=== PATIENT | male | born 1970 | race Caucasian/White ===

== ENCOUNTER 2017-12-04 11:54 | Inpatient (IN) | payer OTHER ==
[2017-12-04] MEDS ORDERED: Diltiazem 25 MG/5 ML SDV IVPUSH ONE (12:28)
[2017-12-04] MEDS ORDERED: Diltiazem 125 MG in Sodium Chloride 0.9% 100 ML IV SCH (12:30)
--- NOTE | 2017-12-04 12:30 | EDM.PDOC ---
ED HPI GENERAL MEDICAL PROBLEM - General Chief Complaint: Cardiovascular Problem Stated Complaint: IRREGULAR HEARTBEAT Time Seen by Provider: 12/04/17 12:27 Source of Information: Reports: Patient History Limitations: Reports: No Limitations - History of Present Illness INITIAL COMMENTS - FREE TEXT/NARRATIVE: 37-year-old male attends the ED after being seen at occupational health clinic for a physical examination in preparation for a new job here. He just got in from [place] yesterday. He was identified to be in atrial fibrillation of which he did not have any idea that he was in. He is not aware of any fluttering in his chest he has no pain .No dizziness and no chest pain. He believes he started to feel little weak within the last 48 hours but thought it was just the long journey to [place]. Onset: Unknown/Unsure (Probable yesterday.) Onset Date: 12/03/17 Duration: Hour(s): Quality: Reports: Other (Relatively asymptomatic.) Severity: Moderate Improves with: Reports: None (Heart rate on the monitors anywhere from 95-1 70/ m.) Worsens with: Reports: None Context: Reports: Other (Found to be in atrial fibrillation when he went in for his occupational health. Physical examination with Dr. Shetty today.). Denies: Activity, Exercise, Lifting, Sick Contact, Trauma Associated Symptoms: Reports: Malaise, Weakness. Denies: Confusion, Chest Pain , Cough, cough w sputum, Diaphoresis, Fever/Chills, Headaches, Loss of Appetite , Nausea/Vomiting, Rash, Seizure, Shortness of Breath, Syncope Treatments [employer]: Reports: Other (see below) (Mild generalized fatigue and weakness which he just plan on the long journey to [place].) - Related Data Allergies Allergy/AdvReac Type Severity Reaction Status Date / Time Penicillins Allergy Hives Verified 12/04/17 12:12 Home Meds: Home Meds Aspirin [Ecotrin] 81 mg PO DAILY 12/04/17 [History] Past Medical History - Past Health History Medical/Surgical History: Denies Medical/Surgical History Social & Family History - Tobacco Use Smoking Status *Q: Never Smoker Second Hand Smoke Exposure: No - Caffeine Use Caffeine Use: Reports: Coffee - Recreational Drug Use Recreational Drug Use: No - Living Situation & Occupation Living situation: Reports: Single Occupation: Unemployed ED ROS GENERAL - Review of Systems Review Of Systems: See Below Constitutional: Reports: Malaise, Fatigue. Denies: Fever, Chills, Night Sweats , Diaphoresis, Decreased Appetite, Weight Loss, Weight Gain HEENT: Reports: No Symptoms Respiratory: Reports: No Symptoms Cardiovascular: Reports: Blood Pressure Problem. Denies: Chest Pain, Claudication, Dyspnea on Exertion, Edema, Lightheadedness, Orthopnea (Not known to be hypertensive but is today on arrival in the ED.), Palpitations, PND, Syncope, Other Endocrine: Reports: No Symptoms GI/Abdominal: Reports: No Symptoms : Reports: No Symptoms Musculoskeletal: Reports: No Symptoms Skin: Reports: No Symptoms Neurological: Reports: No Symptoms Psychiatric: Reports: No Symptoms Hematologic/Lymphatic: Reports: No Symptoms Immunologic: Reports: No Symptoms ED EXAM, GENERAL - Physical Exam Exam: See Below Exam Limited By: No Limitations General Appearance: Alert, WD/WN, Anxious, Mild Distress Eye Exam: Bilateral Eye: Normal Inspection Throat/Mouth: Normal Inspection, Normal Lips, Normal Oropharynx Head: Atraumatic, Normocephalic Neck: Normal Inspection, Supple, Non-Tender, Full Range of Motion. No: Carotid Bruit, Lymphadenopathy (L), Lymphadenopathy (R), Thyromegaly Respiratory/Chest: No Respiratory Distress, Lungs Clear, Normal Breath Sounds, Chest Non-Tender Cardiovascular: No Edema, No Gallop, No Murmur, No Rub, Tachycardia (Heart rate is up 270/m on monitor at times. It is revealing atrial fibrillation.), Irregularly Irregular. No: Regular Rate, Rhythm Peripheral Pulses: 3+: Posterior Tibial (L), Posterior Tibial (R), Dorsalis Pedis (L), Dorsalis Pedis (R) GI/Abdominal: Normal Bowel Sounds, Soft, Non-Tender, No Organomegaly, No Abnormal Bruit, No Mass, Pelvis Stable (Male) Exam: Normal Inspection Back Exam: Normal Inspection, Full Range of Motion. No: CVA Tenderness (L), CVA Tenderness (R) Extremities: Normal Inspection, Normal Range of Motion, Non-Tender, No Pedal Edema Neurological: Alert, Oriented, CN II-XII Intact, Normal Cognition, Normal Gait Psychiatric: Normal Affect, Normal Mood Skin Exam: Warm, Dry, Intact, Normal Color, No Rash EKG INTERPRETATION EKG Date: 12/04/17 Time: 12:05 Rhythm: A-Fib (With rate of 95-1 70/m.) Rate (Beats/Min): 147 [place]: Normal P-Wave: Absent QRS: Other (Borderline criteria for left ventricular hypertrophy.) ST-T: Other (Diffuse early repolarization pattern.) QT: Normal EKG Interpretation Comments: Abnormal ECG Course - Vital Signs Last Recorded V/S: Last Vital Signs Temp 36.4 C 12/04/17 12:13 Pulse 147 H 12/04/17 12:13 Resp 16 12/04/17 18:54 BP 150/79 H 12/04/17 18:56 Pulse Ox 97 12/04/17 18:54 - Orders/Labs/Meds Orders: Active Orders 24 hr Category Date Time Status EKG Documentation Completion [RC] STAT Care 12/04/17 12:27 Active INR,PT,PROTHROMBIN TIME [COAG] Routine Lab 12/04/17 20:32 Ordered Diltiazem 125 mg Med 12/04/17 12:30 Active Sodium Chloride 0.9% [Normal Saline] 100 ml IV ASDIRECTED Warfarin [Coumadin] Med 12/04/17 20:28 Once 7.5 mg PO ONETIME ONE Medication Orders Diltiazem HCl 125 mg/ Sodium (Chloride) 125 mls @ 10 mls/hr IV ASDIRECTED CECIL PRN Reason: 10 MG/HR Last Admin: 12/04/17 12:49 Dose: 10 mg/hr, 10 mls/hr Labs: Laboratory Tests 12/04/17 12/04/17 12/04/17 Range/Units 12:10 12:10 12:10 WBC 6.53 (4.23-9.07) K/mm3 RBC 3.97 L (4.63-6.08) M/mm3 Hgb 10.7 L (13.7-17.5) gm/L Hct 32.6 L (40.1-51.0) % MCV 82.1 (79.0-92.2) fl MCH 27.0 (25.7-32.2) pg MCHC 32.8 (32.2-35.5) g/dl RDW Std Deviation 48.5 H (35.1-43.9) fL Plt Count 209 (163-337) K/mm3 MPV 11.9 (9.4-12.3) fl Neutrophils % (Manual) 45 (40-60) % Band Neutrophils % 0 (0-10) % Lymphocytes % (Manual) 53 H (20-40) % Atypical Lymphs % 0 % Monocytes % (Manual) 2 (2-10) % Eosinophils % (Manual) 0 L (0.8-7.0) % Basophils % (Manual) 0 L (0.2-1.2) Platelet Estimate Adequate RBC Morph Comment Normal PT 10.5 (8.0-13.0) SECONDS INR 0.97 D-Dimer, Quantitative (0.19-0.59) mg/L Sodium 139 (136-145) mEq/L Potassium 4.4 (3.5-5.1) mEq/L Chloride 106 (98-107) mEq/L Carbon Dioxide 23 (21-32) mEq/L Anion Gap 14.4 (5-15) BUN 17 (7-18) mg/dL Creatinine 0.6 L (0.7-1.3) mg/dL Est Cr Clr Drug Dosing 161.12 mL/min Estimated GFR (MDRD) > 60 (>60) mL/min BUN/Creatinine Ratio 28.3 H (14-18) Glucose 88 (74-106) mg/dL Calcium 8.7 (8.5-10.1) mg/dL Magnesium 1.6 L (1.8-2.4) mg/dl Total Bilirubin 0.8 (0.2-1.0) mg/dL GGT (15-85) U/L AST 32 (15-37) U/L ALT 44 (16-63) U/L Alkaline Phosphatase 426 H (46-116) U/L CK-MB (CK-2) 1.0 (0-3.6) ng/ml Troponin I 0.023 (0.00-0.056) ng/mL NT-Pro-B Natriuret Pep (0-125) pg/mL Total Protein 7.1 (6.4-8.2) g/dl Albumin 3.4 (3.4-5.0) g/dl Globulin 3.7 gm/dL Albumin/Globulin Ratio 0.9 L (1-2) 12/04/17 12/04/17 12/04/17 Range/Units 12:10 12:10 12:10 WBC (4.23-9.07) K/mm3 RBC (4.63-6.08) M/mm3 Hgb (13.7-17.5) gm/L Hct (40.1-51.0) % MCV (79.0-92.2) fl MCH (25.7-32.2) pg MCHC (32.2-35.5) g/dl RDW Std Deviation (35.1-43.9) fL Plt Count (163-337) K/mm3 MPV (9.4-12.3) fl Neutrophils % (Manual) (40-60) % Band Neutrophils % (0-10) % Lymphocytes % (Manual) (20-40) % Atypical Lymphs % % Monocytes % (Manual) (2-10) % Eosinophils % (Manual) (0.8-7.0) % Basophils % (Manual) (0.2-1.2) Platelet Estimate RBC Morph Comment PT (8.0-13.0) SECONDS INR D-Dimer, Quantitative 0.58 (0.19-0.59) mg/L Sodium (136-145) mEq/L Potassium (3.5-5.1) mEq/L Chloride (98-107) mEq/L Carbon Dioxide (21-32) mEq/L Anion Gap (5-15) BUN (7-18) mg/dL Creatinine (0.7-1.3) mg/dL Est Cr Clr Drug Dosing mL/min Estimated GFR (MDRD) (>60) mL/min BUN/Creatinine Ratio (14-18) Glucose (74-106) mg/dL Calcium (8.5-10.1) mg/dL Magnesium (1.8-2.4) mg/dl Total Bilirubin (0.2-1.0) mg/dL GGT 308 H (15-85) U/L AST (15-37) U/L ALT (16-63) U/L Alkaline Phosphatase (46-116) U/L CK-MB (CK-2) (0-3.6) ng/ml Troponin I (0.00-0.056) ng/mL NT-Pro-B Natriuret Pep 1856 H (0-125) pg/mL Total Protein (6.4-8.2) g/dl Albumin (3.4-5.0) g/dl Globulin gm/dL Albumin/Globulin Ratio (1-2) Meds: Medications Generic Name Dose Route Start Last Admin Trade Name Julian PRN Reason Stop Dose Admin Diltiazem HCl 125 mg/ Sodium 125 mls @ 10 mls/hr 12/04/17 12:30 12/04/17 12: 49 Chloride IV 10 mg/hr ASDIRECTED CECIL 10 mls/hr 10 MG/HR Administration Discontinued Medications Generic Name Dose Route Start Last Admin Trade Name Julian PRN Reason Stop Dose Admin Amiodarone HCl Confirm 12/04/17 18:27 12/04/17 18:56 Cordarone Administered 12/04/17 18:28 Not Given Dose 150 mg .ROUTE .STK-MED ONE Citric Acid/Sodium Citrate Confirm 12/04/17 18:18 Bicitra Solution Administered 12/04/17 18:19 Dose 30 ml .ROUTE .STK-MED ONE Diltiazem HCl 10 mg 12/04/17 12:28 12/04/17 12:40 Diltiazem IVPUSH 12/04/17 12:29 10 mg ONETIME ONE Administration Diltiazem HCl Confirm 12/04/17 12:44 12/04/17 12:41 Diltiazem Administered 12/04/17 12:45 Not Given Dose 25 mg .ROUTE .STK-MED ONE Diltiazem HCl 300 mg 12/04/17 19:34 12/04/17 19:57 Cardizem Cd PO 12/04/17 19:35 300 mg ONETIME ONE Administration Enoxaparin Sodium 75 mg 12/04/17 20:17 12/04/17 20:27 Lovenox SUBCUT 12/04/17 20:18 75 mg ONETIME ONE Administration Fentanyl Confirm 12/04/17 18:20 Sublimaze Administered 12/04/17 18:21 Dose 100 mcg .ROUTE .STK-MED ONE Fentanyl Confirm 12/04/17 18:37 Sublimaze Administered 12/04/17 18:38 Dose 100 mcg .ROUTE .STK-MED ONE Furosemide 40 mg 12/04/17 14:41 12/04/17 14:50 Lasix IVPUSH 12/04/17 14:42 40 mg NOW ONE Administration Magnesium Sulfate 2 gm/ Premix 50 mls @ 25 mls/hr 12/04/17 14:40 12/04/17 14: 51 IV 02/05/18 16:39 25 mls/hr ONETIME ONE Administration Ibutilide Fumarate 1 mg/ 60 mls @ 300 mls/hr 12/04/17 14:40 12/04/17 14:59 Sodium Chloride IV 12/04/17 14:51 300 mls/hr ONETIME ONE Administration Ibutilide Fumarate 1 mg/ 60 mls @ 300 mls/hr 12/04/17 15:42 12/04/17 16:08 Sodium Chloride IV 12/04/17 15:53 300 mls/hr ONETIME ONE Administration Amiodarone HCl/Dextrose Confirm 12/04/17 18:17 12/04/17 18:42 Nexterone In Dextrose 150 Mg/100 Ml Administered 12/04/17 18:18 Not Given Dose 100 mls @ as directed IV .STK-MED ONE Amiodarone HCl/Dextrose 150 mg 100 mls @ 400 mls/hr 12/04/17 18:46 12/04/17 18:25 / Premix IV 12/04/17 19:00 400 mls/hr NOW ONE Administration Protocol Ketamine HCl Confirm 12/04/17 18:20 Ketalar Administered 12/04/17 18:21 Dose 500 mg .ROUTE .STK-MED ONE Metoclopramide HCl Confirm 12/04/17 18:21 Reglan Administered 12/04/17 18:22 Dose 10 mg .ROUTE .STK-MED ONE Midazolam HCl Confirm 12/04/17 18:20 Versed 1 Mg/Ml Administered 12/04/17 18:21 Dose 4 mg .ROUTE .STK-MED ONE Midazolam HCl Confirm 12/04/17 18:37 Versed 1 Mg/Ml Administered 12/04/17 18:38 Dose 2 mg .ROUTE .STK-MED ONE Propofol Confirm 12/04/17 18:20 Diprivan 20 Ml Administered 12/04/17 18:21 Dose 200 mg .ROUTE .STK-MED ONE - Radiology Interpretation Free Text/Narrative:: 47-year-old male presents to the ED after he presented to the occupational health clinic this morning to see Dr. Shetty in terms of having a complete physical examination and preparation for a job here in [facility]. However he was found to be in atrial fibrillation much to his surprise as he was asymptomatic in terms of dizziness shortness of breath or chest pain. He felt perhaps a little weak the last day or 2 but blamed his long journey from [place] on this. He has not been taking any stimulants or drinking any energy drinks to make a long journey. He was found to be in atrial fibrillation with a rate of 95- 170/min. Plan is to start him on Cardizem drip at 10 mg per hour and give 10 mg IV bolus for control routine labs including ECG. - Re-Assessments/Exams Free Text/Narrative Re-Assessment/Exam: 12/04/17 14:28 Labs reveal a white count of 6.53 with 45% neutrophils no bands and 53% lymphocytes suggesting a viral infection. Hemoglobin is low at 10.7 with hematocrit of 32.6. MCV is normal at 82.1. Patient had her therefore has anemia of unclear origin. PT is 10.5 with an INR of 0.97. Sodium is 139 with potassium of 4.4. Port is 106 with a bicarbonate of 23. And a gap is 14.4. BUN is 17 with a creatinine of 0.6. EGFR is greater than 60. Glucose is 88 with a calcium of 8.7. Magnesium slightly low at 1.6. Total bilirubin is 0.8. AST is 32 ALT is 44. Alk phosphatase is elevated at 426. CK-MB fraction is 1.0 with a troponin I 0.0-3. BNP is 1856. Chest x-ray reveals hyperinflated lung miranda. Cardiac silhouette is upper limits of normal. There is evidence of diffuse vascular congestion particularly in the perihilar areas. His heart rate is in the 90s but remains in atrial fibrillation. BP is 139/72. Maintenance on Cardizem drip at 10 mg/m. 12/04/17 14:42 we'll give the patient had 2 g of magnesium sulfate over the next 2 hours. His magnesium slightly low 1.6. This would make electrical cardioversion or successful. In the meantime we will go ahead with Corvert 1 mg IV over 15 minutes while the Cardizem drip was stopped and then restarted after the Corvert is in to see we can convert him back to sinus rhythm. I will also give him Lasix 40 mg IV due to elevated BNP at 1856.. 12/04/17 15:55 first dose of Corvert did not convert him to sinus rhythm he remains atrial fibrillation in the 80s. BP is maintained at 152/80. Will therefore order another 1 mg of Corvert to be infused over 15 minutes. Cardizem drip to be stopped during this infusion restarted once the Corvert infusion has been completed. 12/04/17 17:30: Patient unfortunately did not convert back to sinus rhythm after second dose of Corvert. He remains on Cardizem drip at 10 mg an hour. Rate is controlled in the 80s. I gave him the options of taking medication and anticoagulants versus trying electrocardioversion. He has opted for cardioversion attempt. I will therefore call anesthesia to provide conscious sedation so that I can perform low-dose cardioversion 50-100 J. Consent to be obtained. 12/04/17 18:47 we cardioverted the patient 4 times in total. 50 J 1 with no change in rhythm. 100 J 1 with very transient conversion to sinus rhythm but was not sustained. He was therefore given amiodarone 150 mg IV and cardioverted once again with 100 J 2 with unsuccessful ability to convert him to sinus rhythm. He will therefore be placed back on the Cardizem drip at 10 mg an hour. The plan will be to convert him to oral medications and oral anticoagulants. 12/04/17 19:35 Patient will be given 300 mg of Cardizem CD preparation orally now. Will be able to discontinue the Cardizem drip in about an hour and a half. Current blood pressure is 130/65. Heart rate is 76 and remains atrial fibrillation. Barriers to treatment are financial. May be able to get him Xarelto 20 mg daily for through a Xarelto help program. It's unclear if he qualifies at this time. It is likely that he will be able to only afford Coumadin. 12/04/17 20:32 decision made to give him the initial dose of Lovenox 75 mg subcutaneously in the ED. I will also given initial dose of Coumadin 7.5 mg by mouth with plan to place him on 5 mg tomorrow. Case discussed with Dr. Mckeon tester semiconductor packages hospitalist and he is willing to admit him to the intensive care unit for definitive management and care. Departure - Departure Time of Disposition: 20:35 Disposition: Admitted As Inpatient 66 Condition: Fair Clinical Impression: Persistent atrial fibrillation with RVR, Normocytic anemia, Elevated alkaline phosphatase measurement Congestive heart failure Qualifiers: Congestive heart failure type: unspecified Congestive heart failure chronicity : acute Qualified Code(s): I50.9 - Heart failure, unspecified Referrals: PCP,Not In Area [Primary Care Provider] - Forms: ED Department Discharge - My Orders Last 24 Hours: My Active Orders 12/04/17 12:27 EKG Documentation Completion [RC] STAT 12/04/17 12:30 Diltiazem 125 mg Sodium Chloride 0.9% [Normal Saline] 100 ml IV ASDIRECTED 12/04/17 20:28 Warfarin [Coumadin] 7.5 mg PO ONETIME ONE 12/04/17 20:32 INR,PT,PROTHROMBIN TIME [COAG] Routine - Assessment/Plan Last 24 Hours: My Active Orders 12/04/17 12:27 EKG Documentation Completion [RC] STAT 12/04/17 12:30 Diltiazem 125 mg Sodium Chloride 0.9% [Normal Saline] 100 ml IV ASDIRECTED 12/04/17 20:28 Warfarin [Coumadin] 7.5 mg PO ONETIME ONE 12/04/17 20:32 INR,PT,PROTHROMBIN TIME [COAG] Routine
[2017-12-04] MEDS ORDERED: Diltiazem 25 MG/5 ML SDV ONE (12:44)
[2017-12-04] MEDS ORDERED: Magnesium Sulfate/Water 2 GM in Premix Bag 1 BAG IV ONE (14:40)
[2017-12-04] MEDS ORDERED: Furosemide 40 MG/4 ML VIAL IVPUSH ONE (14:41)
--- NOTE | 2017-12-04 14:44 | CR ---
Chest: Portable view of the chest is obtained. Comparison: No prior study. Heart size appears within normal limits for portable technique. Lung markings are slightly increased which may represent mild pulmonary vascular congestion. Slight atelectasis is seen within the left mid to lower lung. Bony structures are grossly intact. Impression: 1. Questionable mild pulmonary vascular congestion. 2. Minimal left-sided atelectasis. Diagnostic code #3
--- NOTE | 2017-12-04 17:48 | PCM.PREANE ---
Preanesthetic Assessment - Anesthesia/Transfusion/Family Hx Anesthesia History: No Prior Anesthesia Family History of Anesthesia Reaction: No - Review of Systems General: Fatigue, Malaise Pulmonary: No Symptoms Cardiovascular: Palpitations Gastrointestinal: No Symptoms Neurological: No Symptoms Other: Reports: None - Physical Assessment NPO Status Date: 12/04/17 NPO Status Time: 13:00 O2 Sat by Pulse Oximetry: 97 Respiratory Rate: 16 Vital Signs: Last Vital Signs Temp 36.4 C 12/04/17 12:13 Pulse 147 H 12/04/17 12:13 Resp 16 12/04/17 12:13 BP 147/104 H 12/04/17 12:13 Pulse Ox 97 12/04/17 12:13 Height: 1.83 m Weight: 74.843 kg ASA Class: 2E Mental Status: Alert & Oriented x3 Airway Class: Mallampati = 1 Dentition: Reports: Normal Dentition Thyro-Mental Finger Breadths: 3 Mouth Opening Finger Breadths: 3 ROM/Head Extension: Full Lungs: Clear to Auscultation, Normal Respiratory Effort Cardiovascular: Irregular Rhythm - Lab Values: Laboratory Last Values WBC 6.53 K/mm3 (4.23-9.07) 12/04/17 12:10 RBC 3.97 M/mm3 (4.63-6.08) L 12/04/17 12:10 Hgb 10.7 gm/L (13.7-17.5) L 12/04/17 12:10 Hct 32.6 % (40.1-51.0) L 12/04/17 12:10 MCV 82.1 fl (79.0-92.2) 12/04/17 12:10 MCH 27.0 pg (25.7-32.2) 12/04/17 12:10 MCHC 32.8 g/dl (32.2-35.5) 12/04/17 12:10 RDW Std Deviation 48.5 fL (35.1-43.9) H 12/04/17 12:10 Plt Count 209 K/mm3 (163-337) 12/04/17 12:10 MPV 11.9 fl (9.4-12.3) 12/04/17 12:10 Neutrophils % (Manual) 45 % (40-60) 12/04/17 12:10 Band Neutrophils % 0 % (0-10) 12/04/17 12:10 Lymphocytes % (Manual) 53 % (20-40) H 12/04/17 12:10 Atypical Lymphs % 0 % 12/04/17 12:10 Monocytes % (Manual) 2 % (2-10) 12/04/17 12:10 Eosinophils % (Manual) 0 % (0.8-7.0) L 12/04/17 12:10 Basophils % (Manual) 0 (0.2-1.2) L 12/04/17 12:10 Platelet Estimate Adequate 12/04/17 12:10 RBC Morph Comment Normal 12/04/17 12:10 PT 10.5 SECONDS (8.0-13.0) 12/04/17 12:10 INR 0.97 12/04/17 12:10 D-Dimer, Quantitative 0.58 mg/L (0.19-0.59) 12/04/17 12:10 Sodium 139 mEq/L (136-145) 12/04/17 12:10 Potassium 4.4 mEq/L (3.5-5.1) 12/04/17 12:10 Chloride 106 mEq/L (98-107) 12/04/17 12:10 Carbon Dioxide 23 mEq/L (21-32) 12/04/17 12:10 Anion Gap 14.4 (5-15) 12/04/17 12:10 BUN 17 mg/dL (7-18) 12/04/17 12:10 Creatinine 0.6 mg/dL (0.7-1.3) L 12/04/17 12:10 Est Cr Clr Drug Dosing 161.12 mL/min 12/04/17 12:10 Estimated GFR (MDRD) > 60 mL/min (>60) 12/04/17 12:10 BUN/Creatinine Ratio 28.3 (14-18) H 12/04/17 12:10 Glucose 88 mg/dL (74-106) 12/04/17 12:10 Calcium 8.7 mg/dL (8.5-10.1) 12/04/17 12:10 Magnesium 1.6 mg/dl (1.8-2.4) L 12/04/17 12:10 Total Bilirubin 0.8 mg/dL (0.2-1.0) 12/04/17 12:10 GGT 308 U/L (15-85) H 12/04/17 12:10 AST 32 U/L (15-37) 12/04/17 12:10 ALT 44 U/L (16-63) 12/04/17 12:10 Alkaline Phosphatase 426 U/L (46-116) H 12/04/17 12:10 CK-MB (CK-2) 1.0 ng/ml (0-3.6) 12/04/17 12:10 Troponin I 0.023 ng/mL (0.00-0.056) 12/04/17 12:10 NT-Pro-B Natriuret Pep 1856 pg/mL (0-125) H 12/04/17 12:10 Total Protein 7.1 g/dl (6.4-8.2) 12/04/17 12:10 Albumin 3.4 g/dl (3.4-5.0) 12/04/17 12:10 Globulin 3.7 gm/dL 12/04/17 12:10 Albumin/Globulin Ratio 0.9 (1-2) L 12/04/17 12:10 - Imaging/EKG Impressions: Atrial Fibrillation - Allergies Allergies/Adverse Reactions: Allergies Allergy/AdvReac Type Severity Reaction Status Date / Time Penicillins Allergy Hives Verified 12/04/17 12:12 - Anesthesia Plan Pre-Op Medication Ordered: Antacids (Bicitra 30ml PO and Reglan 10 mg IV) - Acknowledgements Anesthesia Type Planned: MAC Pt an Appropriate Candidate for the Planned Anesthesia: Yes Alternatives and Risks of Anesthesia Discussed w Pt/Guardian: Yes Pt/Guardian Understands and Agrees with Anesthesia Plan: Yes PreAnesthesia Questionnaire - Past Health History Medical/Surgical History: Denies Medical/Surgical History - SUBSTANCE USE Smoking Status *Q: Never Smoker Second Hand Smoke Exposure: No Recreational Drug Use History: No - HOME MEDS Home Medications: Home Meds Aspirin [Ecotrin] 81 mg PO DAILY 12/04/17 [History] - CURRENT (IN HOUSE) MEDS Current Meds: Current Medications Diltiazem HCl 125 mg/ Sodium (Chloride) 125 mls @ 10 mls/hr IV ASDIRECTED CECIL PRN Reason: 10 MG/HR Last Admin: 12/04/17 12:49 Dose: 10 mg/hr, 10 mls/hr Discontinued Medications Diltiazem HCl (Diltiazem) 10 mg IVPUSH ONETIME ONE Stop: 12/04/17 12:29 Last Admin: 12/04/17 12:40 Dose: 10 mg Diltiazem HCl (Diltiazem) Confirm Administered Dose 25 mg .ROUTE .STK-MED ONE Stop: 12/04/17 12:45 Last Admin: 12/04/17 12:41 Dose: Not Given Furosemide (Lasix) 40 mg IVPUSH NOW ONE Stop: 12/04/17 14:42 Last Admin: 12/04/17 14:50 Dose: 40 mg Magnesium Sulfate 2 gm/ Premix 50 mls @ 25 mls/hr IV ONETIME ONE Stop: 12/04/17 16:39 Last Admin: 12/04/17 14:51 Dose: 25 mls/hr Ibutilide Fumarate 1 mg/ (Sodium Chloride) 60 mls @ 300 mls/hr IV ONETIME ONE Stop: 12/04/17 14:51 Last Admin: 12/04/17 14:59 Dose: 300 mls/hr Ibutilide Fumarate 1 mg/ (Sodium Chloride) 60 mls @ 300 mls/hr IV ONETIME ONE Stop: 12/04/17 15:53 Last Admin: 12/04/17 16:08 Dose: 300 mls/hr
[2017-12-04] MEDS ORDERED: Citric Acid/Sodium Citrate Solution 30 ML Cup ONE (18:18)
[2017-12-04] MEDS ORDERED: Propofol 200 MG/20 ML SDV ONE (18:20)
[2017-12-04] MEDS ORDERED: Ketamine 500 mg/10 ML MDV ONE (18:20)
[2017-12-04] MEDS ORDERED: Midazolam 1 MG/ML 2 ML SDV ONE ×2 (18:20→18:37)
[2017-12-04] MEDS ORDERED: fentaNYL 100 MCG/2 ML SDV ONE ×2 (18:20→18:37)
[2017-12-04] MEDS ORDERED: Metoclopramide 10 MG/2 ML SDV ONE (18:21)
[2017-12-04] MEDS ORDERED: Amiodarone 150 MG/3 ML SDV ONE (18:27)
[2017-12-04] MEDS ORDERED: Amiodarone In Dextrose,Iso-Osm 150 MG in Premix Bag 1 BAG IV ONE ×2 (18:46)
[2017-12-04] MEDS ORDERED: Diltiazem 300 MG Cap.CD PO ONE (19:34)
[2017-12-04] MEDS ORDERED: Enoxaparin 80 MG/0.8 ML Syringe SUBCUT ONE (20:17)
[2017-12-04] MEDS ORDERED: Warfarin 7.5 MG Tab PO ONE (20:28)
[2017-12-04] MEDS ORDERED: Ondansetron 4 MG/2 ML SDV IV PRN (21:53)
[2017-12-04] MEDS ORDERED: Acetaminophen/HYDROcodone 325-5 MG Tab PO PRN (21:53)
[2017-12-04] MEDS ORDERED: Ondansetron 4 MG Tab.DIS PO PRN (21:53)
--- NOTE | 2017-12-04 22:47 | PCM.HP ---
H&P History of Present Illness - General Date of Service: 12/04/17 Admit Problem/Dx: New onset A-Fib with RVR Source of Information: Patient, Provider, RN, RN Notes Reviewed History Limitations: Reports: No Limitations, Other (slightly sedated from cardioversion) - History of Present Illness Initial Comments - Free Text/Narative: Taras Bui is a 47 yo male who presents to our ED today as she was seen in occupational health clinic for preemployment physical and found to have new onset A. fib with fast heart rate. He has had no palpitations, fluttering in his chest, or chest pain. He was unaware he was in A. fib. He reportedly started to feel low week over the last 48 hours but thought this was due to his journey from [place] to [place] for employment. He just arrived in [place] yesterday. He denies any drug use. Denies any energy drink or stimulant use. In the ED his heart rate on the monitors bounces anywhere from 95-170 bpm. Twelve-lead was obtained showing A. fib with a rate of 147. There is borderline criteria for LVH and diffuse early repolarization pattern. Temperature is 36.4C. Pulse 147. Respirations 16. Blood pressure 150/79. Pulse ox 97%. Labs are obtained: W CBC is normal at 6.53. Hemoglobin is low at 10.7. Hematocrit low at 32.6. He is normocytic. Pulses are good at 209, 000. Neutrophils are normal at 45%. There is no bandemia. PT is 10.5. INR 0.97. I've 8. Sodium is 139. Potassium 4.4. Chloride 106. Carb dioxide 23. Anion gap 14.4. BUN 17. Creatinine 0.6. EGFR greater than 60. Glucose is 88. Calcium 8.7. Magnesium is low at 1.6. Total bilirubin good at 0.8. AST is 32, ALT 44, alkaline phosphatase 426. GGT is obtained and is 308. CK-MB is 1. Troponin 0.023. ProBNP is elevated at 1856. Protein is good at 7.1. Albumin 3.4. CXR shows some diffuse vascular congestion and hyperinflated lung miranda. There are multiple attempts to try to return to a normal rhythm. Cardizem drip was started. Amiodarone 150 mg was given, as was corvert. Diltiazem 10 mg IV push was also given. Lovenox 75 mg, which is 1 mg/kg was started and 7.5 g warfarin were given as well. His given 40 mg Lasix for the high BNP. Fentanyl given for sedation. 2 g IV magnesium was given for supplementation. Ketamine was given for sedation. Reglan for nausea, and Versed for sedation. Propofol was also given for sedation. Cardioversion was attempted 4 times in total with 1 attempt at 50 J and 3 attempts at 100 J. He did not return to a sinus rhythm. He denies any medical history but does take a baby aspirin daily. He was never a smoker. He subsequently admitted to the ICU. He is a full code. He is due to the area and will need to establish a PCP locally. - Related Data Allergies/Adverse Reactions: Allergies Allergy/AdvReac Type Severity Reaction Status Date / Time Penicillins Allergy Hives Verified 12/04/17 12:12 Home Medications: Home Meds Aspirin [Ecotrin] 81 mg PO DAILY 12/04/17 [History] Past Medical History - Past Health History Medical/Surgical History: Denies Medical/Surgical History Social & Family History - Tobacco Use Smoking Status *Q: Never Smoker Second Hand Smoke Exposure: No - Caffeine Use Caffeine Use: Reports: Coffee, Soda - Alcohol Use Days Per Week of Alcohol Use: 2 Number of Drinks Per Day: 0 Total Drinks Per Week: 0 - Recreational Drug Use Recreational Drug Use: No - Living Situation & Occupation Living situation: Reports: Single Occupation: Unemployed H&P Review of Systems - Review of Systems: Review Of Systems: See Below General: Reports: Malaise, Fatigue. Denies: Fever, Chills, Weakness, Diaphoresis, Decreased Appetite, Weight Loss, Weight Gain HEENT: Reports: No Symptoms Pulmonary: Reports: No Symptoms. Denies: Shortness of Breath, Wheezing, Pleuritic Chest Pain, Cough, Sputum Cardiovascular: Reports: Blood Pressure Problem. Denies: Chest Pain, Palpitations, Dyspnea on Exertion, Edema, Lightheadedness, Syncope, Claudication Gastrointestinal: Reports: No Symptoms. Denies: Abdominal Pain, Constipation, Diarrhea, Hematemesis, Hematochezia, Melena, Nausea, Vomiting Genitourinary: Reports: No Symptoms. Denies: Dysuria, Frequency, Burning, Pain , Urgency Musculoskeletal: Reports: No Symptoms Skin: Reports: No Symptoms Psychiatric: Reports: No Symptoms Neurological: Reports: No Symptoms Hematologic/Lymphatic: Reports: No Symptoms Immunologic: Reports: No Symptoms Exam - Exam Exam: See Below - Vital Signs Vital Signs: Last Vital Signs Temp 98.4 F 12/04/17 22:15 Pulse 83 12/04/17 22:15 Resp 18 12/04/17 22:15 BP 132/65 12/04/17 22:15 Pulse Ox 93 L 12/04/17 22:15 Weight: 156 lb 11.2 oz - Exam General: Cooperative, Sedated (mildly from sedation prior to cardioversion ). No: Mild Distress HEENT: PERRLA, Hearing Intact, Mucosa Moist & [place], Nares Patent, Normal Nasal Septum, Posterior Pharynx Clear, Conjunctiva Clear, EOMI, EACs Clear, TMs Clear Neck: Supple, Trachea Midline, Full Range of Motion. No: JVD, Thyromegaly Lungs: Clear to Auscultation, Normal Respiratory Effort Cardiovascular: Regular Rate, Irregular Rhythm GI/Abdominal Exam: Normal Bowel Sounds, Soft, Non-Tender, No Organomegaly, No Distention, No Abnormal Bruit, No Mass, Pelvis Stable (Male) Exam: Deferred Rectal (Males) Exam: Deferred Back Exam: Normal Inspection, Full Range of Motion Extremities: Normal Inspection, Normal Range of Motion, Non-Tender, No Pedal Edema, Normal Capillary Refill Peripheral Pulses: 3+: Radial (L), Radial (R), Posterior Tibial (L), Posterior Tibial (R), Dorsalis Pedis (L), Dorsalis Pedis (R) Skin: Warm, Dry, Intact Neurological: Cranial Nerves Intact (Grossly ) Neuro Extensive - Mental Status: Oriented x3, Normal Mood/Affect, Normal Cognition, Memory Intact, Other (mildly sedated but does open eyes to command and is able to carry on normal conversation. ) Psychiatric: Normal Affect, Normal Mood - Patient Data Result Diagrams: 12/04/17 12:10 12/04/17 12:10 *Q Meaningful Use (ADM) - VTE *Q VTE Criteria *Q: - Stroke *Q Stroke Criteria *Q: - AMI *Q AMI Criteria *Q: - Problem List (1) Persistent atrial fibrillation with RVR SNOMED Code(s): 350026597 ICD Code: I48.1 - PERSISTENT ATRIAL FIBRILLATION Status: Acute Priority: High Current Visit: Yes (2) Hyperthyroidism SNOMED Code(s): 78583513 ICD Code: E05.90 - THYROTOXICOSIS, UNSP WITHOUT THYROTOXIC CRISIS OR STORM Status: Acute Priority: Medium Current Visit: Yes (3) Congestive heart failure SNOMED Code(s): 60968409 ICD Code: I50.9 - HEART FAILURE, UNSPECIFIED Status: Acute Priority: Medium Current Visit: Yes Qualifiers: Congestive heart failure type: unspecified Congestive heart failure chronicity: acute Qualified Code(s): I50.9 - Heart failure, unspecified (4) Elevated alkaline phosphatase measurement Status: Acute Priority: Medium Current Visit: Yes (5) Normocytic anemia SNOMED Code(s): 679766892 ICD Code: D64.9 - ANEMIA, UNSPECIFIED Status: Acute Priority: Medium Current Visit: Yes (6) Hypomagnesemia SNOMED Code(s): 355246924 ICD Code: E83.42 - HYPOMAGNESEMIA Status: Acute Current Visit: Yes Problem List Initiated/Reviewed/Updated: Yes Orders Last 24hrs: Active Orders 24 hr Category Date Time Status Antiembolic Devices [RC] PER UNIT ROUTINE Care 12/04/17 21:54 Active Cardiac Monitoring [RC] .PRN Care 12/04/17 21:54 Active Height and Weight [RC] 04 Care 12/04/17 21:53 Active Intake and Output [RC] 04,16 Care 12/04/17 21:54 Active Oxygen Therapy [RC] PRN Care 12/04/17 21:53 Active Pulse Oximetry [RC] PRN Care 12/04/17 21:54 Active Up With Assistance [RC] ASDIRECTED Care 12/04/17 21:53 Active Vital Signs [RC] Q4HR Care 12/04/17 21:53 Active Consult to Case Management [CONS] Routine Cons 12/04/17 21:53 Active Consult to Field Service Tech [CONS] Routine Cons 12/04/17 21:53 Active Heart Healthy Diet [DIET] Diet 12/04/17 Dinner Active BASIC METABOLIC PANEL,BMP [CHEM] AM Lab 12/05/17 05:11 Ordered BASIC METABOLIC PANEL,BMP [CHEM] AM Lab 12/06/17 05:11 Ordered BASIC METABOLIC PANEL,BMP [CHEM] AM Lab 12/07/17 05:11 Ordered BASIC METABOLIC PANEL,BMP [CHEM] AM Lab 12/08/17 05:11 Ordered CBC WITH AUTO DIFF [HEME] AM Lab 12/05/17 05:11 Ordered CBC WITH AUTO DIFF [HEME] AM Lab 12/06/17 05:11 Ordered CBC WITH AUTO DIFF [HEME] AM Lab 12/07/17 05:11 Ordered CBC WITH AUTO DIFF [HEME] AM Lab 12/08/17 05:11 Ordered DRUG SCREEN, URINE [URCHEM] Routine Lab 12/04/17 21:51 Uncollected FREE T3 [REF] Routine Lab 12/04/17 22:44 Ordered INR,PT,PROTHROMBIN TIME [COAG] AM Lab 12/05/17 05:11 Ordered INR,PT,PROTHROMBIN TIME [COAG] AM Lab 12/06/17 05:11 Ordered INR,PT,PROTHROMBIN TIME [COAG] AM Lab 12/07/17 05:11 Ordered INR,PT,PROTHROMBIN TIME [COAG] AM Lab 12/08/17 05:11 Ordered MAGNESIUM [CHEM] AM Lab 12/05/17 05:11 Ordered MAGNESIUM [CHEM] AM Lab 12/06/17 05:11 Ordered MAGNESIUM [CHEM] AM Lab 12/07/17 05:11 Ordered MAGNESIUM [CHEM] AM Lab 12/08/17 05:11 Ordered T4 FREE [CHEM] Routine Lab 12/04/17 12:10 Received Acetaminophen [Tylenol] Med 12/04/17 21:53 Active 650 mg PO Q4H PRN Acetaminophen/HYDROcodone [[place] 325-5 MG] Med 12/04/17 21:53 Active 1 tab PO Q4H PRN Enoxaparin [Lovenox] Med 12/05/17 09:00 Active 75 mg SUBCUT Q12HR Magnesium Rep Pharmacy to Dose [Pharmacy to Dose - Med 12/04/17 22:00 Active Magnesium Replacement] 1 dose .XX ASDIRECTED Ondansetron [Zofran ODT] Med 12/04/17 21:53 Active 4 mg PO Q6H PRN Ondansetron [Zofran] Med 12/04/17 21:53 Active 4 mg IV Q6H PRN Potassium Rep Pharmacy to Dose [Pharmacy to Dose - Med 12/04/17 22:00 Active Potassium Replacement] 1 dose .XX ASDIRECTED Warfarin Pharmacy to Dose [Pharmacy to Dose - Warfarin] Med 12/05/17 22:00 Active 1 dose .XX ASDIRECTED Antiembolic Hose [OM.PC] Per Unit Routine Oth 12/04/17 21:54 Ordered Resuscitation Status Routine Resus Stat 12/04/17 21:53 Ordered Medication Orders Acetaminophen (Tylenol) 650 mg PO Q4H PRN PRN Reason: Pain (Mild 1-3)/fever Hydrocodone Bitart/Acetaminophen ([place] 325-5 Mg) 1 tab PO Q4H PRN PRN Reason: Pain (moderate 4-6) Enoxaparin Sodium (Lovenox) 75 mg SUBCUT Q12HR [facility] Diltiazem HCl 125 mg/ Sodium (Chloride) 125 mls @ 10 mls/hr IV ASDIRECTED [facility] PRN Reason: 10 MG/HR Last Infusion: 12/04/17 22:44 Dose: 0 mg/hr, 0 mls/hr Admin: 12/04/17 12:49 Dose: 10 mg/hr, 10 mls/hr Magnesium Sulfate (Pharmacy To Dose - Magnesium Replacement) 1 dose .XX ASDIRECTED [facility] Ondansetron HCl (Zofran Odt) 4 mg PO Q6H PRN PRN Reason: nausea, able to take PO Ondansetron HCl (Zofran) 4 mg IV Q6H PRN PRN Reason: Nausea/Vomiting Potassium Chloride (Pharmacy To Dose - Potassium Replacement) 1 dose .XX ASDIRECTED [facility] Warfarin Sodium (Pharmacy To Dose - Warfarin) 1 dose .XX ASDIRECTED [facility] Assessment/Plan Comment:: I/P Acute: A-fib with RVR -Unsure of onset but reports fatigue over past 2 days -Found on pre-employment physical and sent to ED -Attempted pharmacological and electrical cardioversion with no success -Rate 95-170 in ED -Rate control achieved in ED - cardizem drip started -Will discontinue cardizem drip and start PO -Lovenox 75mg BID and warfarin (pharmacy to dose) for anticoagulation -[id number] =1 point (0.6% stroke risk per year) -HAS-BLED = 1 point (relatively low risk of major bleeding) Hyperthyroidism -TSH <0.007 -Free T4 and T3 ordered -No goiter noted on physical exam Heart failure -Pro-BNP 1856 -Diffuse vascular congestion on CXR -40mg Lasix given in ED -Echo in AM -Consider lasix in AM Hypomagnesemia -Magnesium 1.6 in ED -Supplementation given -Pharmacy to monitor Normocytic anemia -Hgb 10.7 -Hct 23.6 -Iron panel, B12, Folic acid ordered Elevated Alkaline Phosphatase -Alk Phos 426 -GGT 308 -Normal ALT and AST -Denies ETOH or drug use -No liver or gallbladder symptoms -Defer further workup to PCP Chronic: None Plan: Admit to ICU CM for discharge planning - will need to establish PCP in [facility] [place] as patient just moved to [facility] for work and is concerned about money with no income He is ambulatory so will hold off PT for now DVT/PE prophylaxis: Warfarin and Lovenox GI prophylaxis: Pepcid Other orders as indicated above Routine AM labs Code status: Full code; PCP: none
[2017-12-04] MEDS ORDERED: Metoprolol Tartrate 5 MG/5 ML SDV IVPUSH PRN (23:25)
[2017-12-04] MEDS ORDERED: LORazepam 2 MG/ML MDV IVPUSH PRN ×2 (23:25)
[2017-12-04] MEDS ORDERED: hydrALAZINE 20 MG/ML SDV IVPUSH PRN (23:25)
--- NOTE | 2017-12-05 07:58 | PCM.PN ---
- General Info Date of Service: 12/05/17 Admission Dx/Problem (Free Text): New onset A-Fib with RVR Subjective Update: Follow Up Functional Status: Reports: Pain Controlled, Tolerating Diet, Ambulating, Urinating. Denies: New Symptoms - Review of Systems General: Denies: Fever, Weakness, Fatigue, Malaise, Chills HEENT: Denies: Headaches Pulmonary: Reports: Cough. Denies: Shortness of Breath Cardiovascular: Denies: Palpitations, Dyspnea on Exertion, Orthopnea, Lightheadedness Gastrointestinal: Denies: Abdominal Pain, Nausea, Vomiting Genitourinary: Reports: No Symptoms Musculoskeletal: Reports: No Symptoms Skin: Denies: Cyanosis, Mottled, Pallor, Diaphoresis, Rash Neurological: Denies: Confusion, Dizziness, Headache, Numbness, Pre-Existing Deficit, Seizure, Syncope, Tingling, Tremors, Trouble Speaking, Difficulty Walking, Weakness, Change in Speech, Gait Disturbance Psychiatric: Denies: Depression, Anxiety, Agitation, Cravings, Hallucinations, Suicidal Ideation Systems Review Comment:: No significant overnight or acute issues. He slept well last night. He feels pretty good. He has no new complaints. His HR has been stable. - Patient Data Vitals - Most Recent: Last Vital Signs Temp 36.7 C 12/05/17 04:00 Pulse 67 12/05/17 04:00 Resp 18 12/05/17 04:00 BP 133/57 L 12/05/17 04:00 Pulse Ox 94 L 12/05/17 04:00 Weight - Most Recent: 73.482 kg I&O - Last 24 Hours: Intake & Output 12/04/17 12/05/17 12/05/17 22:59 06:59 14:59 Intake Total 845 Output Total 1075 Balance -230 Lab Results Last 24 Hours: Laboratory Results - last 24 hr 12/04/17 12/05/17 12/05/17 Range/Units 23:00 05:45 05:45 WBC 6.97 (4.23-9.07) K/mm3 RBC 3.99 L (4.63-6.08) M/mm3 Hgb 10.9 L (13.7-17.5) gm/L Hct 32.5 L (40.1-51.0) % MCV 81.5 (79.0-92.2) fl MCH 27.3 (25.7-32.2) pg MCHC 33.5 (32.2-35.5) g/dl RDW Std Deviation 48.0 H (35.1-43.9) fL Plt Count 201 (163-337) K/mm3 MPV 11.9 (9.4-12.3) fl Neut % (Auto) 40.9 (34.0-67.9) % Lymph % (Auto) 40.7 (21.8-53.1) % [place] % (Auto) 15.8 H (5.3-12.2) % Eos % (Auto) 2.2 (0.8-7.0) Baso % (Auto) 0.1 (0.1-1.2) % Neut # (Auto) 2.85 (1.78-5.38) K/mm3 Lymph # (Auto) 2.84 (1.32-3.57) K/mm3 [place] # (Auto) 1.10 H (0.30-0.82) K/mm3 Eos # (Auto) 0.15 (0.04-0.54) K/mm3 Baso # (Auto) 0.01 (0.01-0.08) K/mm3 Manual Slide Review Normal smear PT 11.0 (8.0-13.0) SECONDS INR 1.01 Urine Opiates Screen Negative (NEGATIVE) Ur Buprenorphine Scrn Negative (NEGATIVE) Ur Oxycodone Screen Negative (NEGATIVE) Urine Methadone Screen Negative (NEGATIVE) Ur Propoxyphene Screen Negative (NEGATIVE) Ur Barbiturates Screen Negative (NEGATIVE) Ur Tricyclics Screen Negative (NEGATIVE) Ur Phencyclidine Scrn Negative (NEGATIVE) Ur Amphetamine Screen Negative (NEGATIVE) U Methamphetamines Scrn Negative (NEGATIVE) U Benzodiazepines Scrn Negative (NEGATIVE) U Cocaine Metab Screen Negative (NEGATIVE) U Marijuana (THC) Screen Negative (NEGATIVE) Med Orders - Current: Current Medications Acetaminophen (Tylenol) 650 mg PO Q4H PRN PRN Reason: Pain (Mild 1-3)/fever Hydrocodone Bitart/Acetaminophen ([place] 325-5 Mg) 1 tab PO Q4H PRN PRN Reason: Pain (moderate 4-6) Diltiazem HCl (Cardizem Cd) 300 mg PO DAILY [facility] Enoxaparin Sodium (Lovenox) 75 mg SUBCUT Q12HR [facility] Famotidine (Pepcid) 20 mg PO BID [facility] Hydralazine HCl (Apresoline) 20 mg IVPUSH Q4H PRN PRN Reason: Hypertension Diltiazem HCl 125 mg/ Sodium (Chloride) 125 mls @ 10 mls/hr IV ASDIRECTED CECIL PRN Reason: 10 MG/HR Last Infusion: 12/04/17 22:44 Dose: 0 mg/hr, 0 mls/hr Lorazepam (Ativan) 2 mg IVPUSH Q4H PRN PRN Reason: Seizures Lorazepam (Ativan) 1 mg IVPUSH Q4H PRN; Protocol PRN Reason: Anxiety Magnesium Sulfate (Pharmacy To Dose - Magnesium Replacement) 1 dose .XX ASDIRECTED [facility] Metoprolol Tartrate (Lopressor) 5 mg IVPUSH Q4H PRN PRN Reason: Tachycardia Ondansetron HCl (Zofran Odt) 4 mg PO Q6H PRN PRN Reason: nausea, able to take PO Ondansetron HCl (Zofran) 4 mg IV Q6H PRN PRN Reason: Nausea/Vomiting Potassium Chloride (Pharmacy To Dose - Potassium Replacement) 1 dose .XX ASDIRECTED [facility] Warfarin Sodium (Pharmacy To Dose - Warfarin) 1 dose .XX ASDIRECTED [facility] Discontinued Medications Amiodarone HCl (Cordarone) Confirm Administered Dose 150 mg .ROUTE .STK-MED ONE Stop: 12/04/17 18:28 Last Admin: 12/04/17 18:56 Dose: Not Given Citric Acid/Sodium Citrate (Bicitra Solution) Confirm Administered Dose 30 ml .ROUTE .STK-MED ONE Stop: 12/04/17 18:19 Diltiazem HCl (Diltiazem) 10 mg IVPUSH ONETIME ONE Stop: 12/04/17 12:29 Last Admin: 12/04/17 12:40 Dose: 10 mg Diltiazem HCl (Diltiazem) Confirm Administered Dose 25 mg .ROUTE .STK-MED ONE Stop: 12/04/17 12:45 Last Admin: 12/04/17 12:41 Dose: Not Given Diltiazem HCl (Cardizem Cd) 300 mg PO ONETIME ONE Stop: 12/04/17 19:35 Last Admin: 12/04/17 19:57 Dose: 300 mg Enoxaparin Sodium (Lovenox) 75 mg SUBCUT ONETIME ONE Stop: 12/04/17 20:18 Last Admin: 12/04/17 20:27 Dose: 75 mg Fentanyl (Sublimaze) Confirm Administered Dose 100 mcg .ROUTE .STK-MED ONE Stop: 12/04/17 18:21 Fentanyl (Sublimaze) Confirm Administered Dose 100 mcg .ROUTE .STK-MED ONE Stop: 12/04/17 18:38 Furosemide (Lasix) 40 mg IVPUSH NOW ONE Stop: 12/04/17 14:42 Last Admin: 12/04/17 14:50 Dose: 40 mg Magnesium Sulfate 2 gm/ Premix 50 mls @ 25 mls/hr IV ONETIME ONE Stop: 12/04/17 16:39 Last Admin: 12/04/17 14:51 Dose: 25 mls/hr Ibutilide Fumarate 1 mg/ (Sodium Chloride) 60 mls @ 300 mls/hr IV ONETIME ONE Stop: 12/04/17 14:51 Last Admin: 12/04/17 14:59 Dose: 300 mls/hr Ibutilide Fumarate 1 mg/ (Sodium Chloride) 60 mls @ 300 mls/hr IV ONETIME ONE Stop: 12/04/17 15:53 Last Admin: 12/04/17 16:08 Dose: 300 mls/hr Amiodarone HCl/Dextrose (Nexterone In Dextrose 150 Mg/100 Ml) Confirm Administered Dose 100 mls @ as directed IV .STK-MED ONE Stop: 12/04/17 18:18 Last Admin: 12/04/17 18:42 Dose: Not Given Amiodarone HCl/Dextrose 150 mg (/ Premix) 100 mls @ 400 mls/hr IV NOW ONE PRN Reason: Protocol Stop: 12/04/17 19:00 Last Admin: 12/04/17 18:25 Dose: 400 mls/hr Ketamine HCl (Ketalar) Confirm Administered Dose 500 mg .ROUTE .STK-MED ONE Stop: 12/04/17 18:21 Metoclopramide HCl (Reglan) Confirm Administered Dose 10 mg .ROUTE .STK-MED ONE Stop: 12/04/17 18:22 Midazolam HCl (Versed 1 Mg/Ml) Confirm Administered Dose 4 mg .ROUTE .STK-MED ONE Stop: 12/04/17 18:21 Midazolam HCl (Versed 1 Mg/Ml) Confirm Administered Dose 2 mg .ROUTE .STK-MED ONE Stop: 12/04/17 18:38 Propofol (Diprivan 20 Ml) Confirm Administered Dose 200 mg .ROUTE .STK-MED ONE Stop: 12/04/17 18:21 Warfarin Sodium (Coumadin) 7.5 mg PO ONETIME ONE Stop: 12/04/17 20:29 Last Admin: 12/04/17 20:42 Dose: 7.5 mg - Exam General: Alert, Oriented, Cooperative, No Acute Distress HEENT: Pupils Equal, Pupils Reactive, EOMI, Mucous Membr. Moist/[place], Other (No ophthamlmopathy) Neck: Supple, Trachea Midline, No JVD, No Thyromegaly Lungs: Clear to Auscultation, Normal Respiratory Effort, Decreased Breath Sounds Cardiovascular: Regular Rate, Regular Rhythm GI/Abdominal Exam: Normal Bowel Sounds, Soft, Non-Tender, No Organomegaly, No Distention, No Abnormal Bruit (Male) Exam: Deferred Back Exam: Normal Inspection, Full Range of Motion Extremities: Normal Inspection, Normal Range of Motion, Non-Tender, No Pedal Edema, Normal Capillary Refill, Other (No pre-tibial myxedema) Peripheral Pulses: 2+: Dorsalis Pedis (L), Dorsalis Pedis (R) Skin: Warm, Dry, Intact Neurological: No New Focal Deficit Psy/Mental Status: Alert, Normal Affect, Normal Mood - Problem List Review Problem List Initiated/Reviewed/Updated: Yes - My Orders Last 24 Hours: My Active Orders 12/04/17 23:25 LORazepam [Ativan] 1 mg IVPUSH Q4H PRN LORazepam [Ativan] 2 mg IVPUSH Q4H PRN Metoprolol Tartrate [Lopressor] 5 mg IVPUSH Q4H PRN hydrALAZINE [Apresoline] 20 mg IVPUSH Q4H PRN 12/05/17 09:00 Diltiazem [Cardizem CD] 300 mg PO DAILY - Plan Plan:: I/P: Acute: A-fib with RVR, Newly diagnosed -2/2 Hyperthyroidism -Unsure of onset but reports fatigue over past 2 days -Found on pre-employment physical and sent to ED -Attempted pharmacological and electrical cardioversion with no success -Rate 95-170 in ED -Rate control achieved in ED - cardizem drip started -Received cardizem drip and start PO--> will switch to BB -Lovenox 75mg BID and warfarin (pharmacy to dose) for anticoagulation -[id number] =1 point (0.6% stroke risk per year) -HAS-BLED = 1 point (relatively low risk of major bleeding) Hyperthyroidism -Toxic Diffuse Goiter vs Toxic Thyroids [place] -No recent viral illness -He denies any auto-immune disease -Denies surreptitious use of thyroid hormone -TSH <0.007---> FT4 8; repeat level --> 13.55 -No goiter noted on physical exam -Will start Methimazole 10 mg po Q8H; first dose now -Additional work up outpatient; he needs a PCP to follow him Elevated ProBNP Level -Likely 2/2 uncontrolled atrial fibrillation -Pro-BNP 1856--> 888 -Diffuse vascular congestion on CXR -40mg Lasix given in ED -Echo in competed -Consider lasix in AM Normocytic anemia -Hgb 10.7/Hct 23.6--> 10.9/32.5 -Iron panel: Low Iron and Transferritin-suggestive of CEE -B12 and Folic acid both normal Elevated Alkaline Phosphatase -Alk Phos 426 -GGT 308 -Normal ALT and AST -Denies ETOH or drug use -No liver or gallbladder symptoms -Defer further workup to PCP Resolved: Hypomagnesemia -Magnesium 1.6 in ED--> 1.9 -Supplementation given -Pharmacy to monitor Chronic: None Plan: He is clinically stable Transfer to [facility] with Tele Routine AM labs Repeat EKG this AM; Atrial Fibrillation Metoprolol 25 mg po BID DVT/PE prophylaxis: NOAC GI prophylaxis: Pepcid Other orders as indicated above CM for discharge planning - will need to establish PCP in [facility] as patient just moved to [facility] for work and is concerned about money with no income Code status: Full code; PCP: none After discussing risk and benefits between Warfarin vs NOACs-->he elected to proceed with NOAC/DOAC. We chose Xarelto since we have available coupon or discount card for him. Possible d/c in AM.
[2017-12-05] MEDS: Famotidine 20 MG Tab PO SCH ×2 (08:30→20:16)
[2017-12-05] MEDS ORDERED: Enoxaparin 80 MG/0.8 ML Syringe SUBCUT SCH (09:00)
[2017-12-05] MEDS ORDERED: Diltiazem 300 MG Cap.CD PO SCH (09:00)
[2017-12-05] MEDS: Acetaminophen 325 MG Tab PO PRN ×2 (10:45→18:00)
[2017-12-05] MEDS: Methimazole 5 MG Tab PO SCH ×2 (10:54→18:00)
[2017-12-05] MEDS ORDERED: Temazepam 15 MG Cap PO PRN (17:57)
[2017-12-05] MEDS ORDERED: Warfarin 7.5 MG Tab PO ONE (18:00)
[2017-12-05] MEDS: Rivaroxaban 10 MG Tab PO SCH (18:13)
[2017-12-05] MEDS: Metoprolol Tartrate 25 MG Tab PO SCH (20:14)
[2017-12-06] MEDS ORDERED: Metoprolol Tartrate 25 MG Tab PO SCH
[2017-12-06] MEDS ORDERED: Methimazole 10 MG Tab PO SCH
[2017-12-06] MEDS: Methimazole 5 MG Tab PO SCH ×2 (03:42→11:35)
[2017-12-06] MEDS: Famotidine 20 MG Tab PO SCH (08:08)
[2017-12-06] MEDS: Metoprolol Tartrate 25 MG Tab PO SCH (08:08)
[2017-12-06] MEDS: Rivaroxaban 10 MG Tab PO SCH (08:09)
--- NOTE | 2017-12-06 08:16 | PCM.DCSUM1 ---
Discharge Summary - Hospital Course Brief History: Taras Bui is a 47 yo male with no past medical hx/o who presents to our ED after he was seen in occupational health clinic for preemployment physical and found to have new onset A. fib with fast heart rate. He was admitted for work up and medical management. - Discharge Data Discharge Date: 12/06/17 Discharge Disposition: Home, Self-Care 01 Condition: Good - Discharge Diagnosis/Problem(s) (1) New onset atrial fibrillation SNOMED Code(s): 92671454 ICD Code: I48.91 - UNSPECIFIED ATRIAL FIBRILLATION Status: Acute (2) Hyperthyroidism SNOMED Code(s): 04598537 ICD Code: E05.90 - THYROTOXICOSIS, UNSP WITHOUT THYROTOXIC CRISIS OR STORM Status: Acute Priority: Medium (3) Elevated alkaline phosphatase measurement Status: Acute Priority: Medium (4) Hypomagnesemia SNOMED Code(s): 871259707 ICD Code: E83.42 - HYPOMAGNESEMIA Status: Acute (5) Normocytic anemia SNOMED Code(s): 104798454 ICD Code: D64.9 - ANEMIA, UNSPECIFIED Status: Acute Priority: Medium (6) Persistent atrial fibrillation with RVR SNOMED Code(s): 406515708 ICD Code: I48.1 - PERSISTENT ATRIAL FIBRILLATION Status: Resolved Priority: High - Patient Summary/Data Operative Procedure(s) Performed: None Complications: None Consults: Consultations 12/04/17 21:53 Consult to Case Management [CONS] Routine Consult to Out Patient Therapist [CONS] Routine Labs Pending at D/C: None Recommended Follow-up Testing/Procedures: None Planned Operative Procedure(s) after DC: None Hospital Course: Patient was primarily admitted for medical treatment of new onset of atrial fibrillation with RVR which we felt was due to Hyperthyroidism. He carried no past medical hx/o in the past or obvious risk factors. Upon presentation to ED, he was found to heart rate as high as 170s. Since it was felt this was new, electrical cardioversion was attempted at least 4 times but w/o any success. He was then treated chemically with CCB and his rate responded well to treatment. Once transferred to the unit, he was switched to BB and his heart rate remained controlled. As for his hyperthyroidism, he was treated with methimazole 10 mg po Q8H but no additional thyroid work up done during this admission. His hospital course was uncomplicated. He was discharged with rate control medication along with xarelto for anticouagualtion. He was also discharged with methimazole for hyperthyroidism. Patient was advised to have thyroid work up once he has medical insurance. He was further advised to follow up with a PCP 1 week after discharge. The patient expressed understanding and in agreement with the plans as discussed above. All questions were answered. - Patient Instructions Diet: Usual Diet as Tolerated Activity: As Tolerated Driving: May Drive Today Showering/Bathing: May Shower Notify Provider of: Fever, Increased Pain, Nausea and/or Vomiting Other/Special Instructions: - Please take all new medications as directed. - Recommend thyroid work up for your hyperthyrodisim after discharge. - Call or follow up with your family doctor for any questions or concerns after discharge. - Follow up with your doctor in 1-2 weeks - Discharge Plan Prescriptions/Med Rec: Metoprolol Tartrate [Lopressor] 25 mg PO Q12HR #60 tablet Methimazole [Tapazole] 10 mg PO TID #90 tablet Rivaroxaban [Xarelto] 20 mg PO DAILY #30 tablet Home Medications: Home Meds Methimazole [Tapazole] 10 mg PO TID #90 tablet 12/06/17 [Rx] Metoprolol Tartrate [Lopressor] 25 mg PO Q12HR #60 tablet 12/06/17 [Rx] Rivaroxaban [Xarelto] 20 mg PO DAILY #30 tablet 12/06/17 [Rx] Patient Handouts: Hyperthyroidism, Rivaroxaban oral tablets, Atrial Fibrillation, [id number] Referrals: PCP,Not In Area [Primary Care Provider] - - Discharge Summary/Plan Comment DC Time >30 min.: Yes (45 mins) Discharge Summary/Plan Comment: Discharge to Home - General Info Date of Service: 12/06/17 Admission Dx/Problem (Free Text: New onset A-Fib with RVR Subjective Update: Follow Up Functional Status: Reports: Pain Controlled, Tolerating Diet, Ambulating, Urinating. Denies: New Symptoms - Review of Systems General: Denies: Fever, Weakness, Fatigue, Malaise, Chills HEENT: Reports: No Symptoms Pulmonary: Denies: Shortness of Breath, Pleuritic Chest Pain, Cough Cardiovascular: Denies: Chest Pain, Palpitations, Dyspnea on Exertion, Orthopnea , Edema, Lightheadedness Gastrointestinal: Denies: Abdominal Pain, Nausea, Vomiting Genitourinary: Reports: No Symptoms Musculoskeletal: Reports: No Symptoms Skin: Denies: Cyanosis, Mottled, Pallor, Diaphoresis, Bruising, Rash Neurological: Denies: Dizziness, Headache, Numbness, Syncope, Tingling, Tremors , Difficulty Walking, Weakness, Gait Disturbance Psychiatric: Denies: Depression, Anxiety, Agitation, Hallucinations Systems Review Comment: No overnight or acute issues. He slept well last night. He feels pretty good. He has no complaints this morning. His HR is controlled. - Patient Data Vitals - Most Recent: Last Vital Signs Temp 37.1 C 12/06/17 03:00 Pulse 117 H 12/06/17 08:08 Resp 16 12/06/17 03:00 BP 141/67 H 12/06/17 08:08 Pulse Ox 96 12/06/17 03:00 Weight - Most Recent: 72.575 kg I&O - Last 24 hours: Intake & Output 12/05/17 12/06/17 12/06/17 22:59 06:59 14:59 Intake Total 1280 240 Output Total 1350 Balance 1280 -1110 Lab Results - Last 24 hrs: Laboratory Results - last 24 hr 12/05/17 12/05/17 12/05/17 Range/Units 05:45 05:45 05:45 WBC (4.23-9.07) K/mm3 RBC (4.63-6.08) M/mm3 Hgb (13.7-17.5) gm/L Hct (40.1-51.0) % MCV (79.0-92.2) fl MCH (25.7-32.2) pg MCHC (32.2-35.5) g/dl RDW Std Deviation (35.1-43.9) fL Plt Count (163-337) K/mm3 MPV (9.4-12.3) fl Neut % (Auto) (34.0-67.9) % Lymph % (Auto) (21.8-53.1) % Daniels % (Auto) (5.3-12.2) % Eos % (Auto) (0.8-7.0) Baso % (Auto) (0.1-1.2) % Neut # (Auto) (1.78-5.38) K/mm3 Lymph # (Auto) (1.32-3.57) K/mm3 Daniels # (Auto) (0.30-0.82) K/mm3 Eos # (Auto) (0.04-0.54) K/mm3 Baso # (Auto) (0.01-0.08) K/mm3 Manual Slide Review PT (8.0-13.0) SECONDS INR Sodium 140 (136-145) mEq/L Potassium 3.8 (3.5-5.1) mEq/L Chloride 106 (98-107) mEq/L Carbon Dioxide 25 (21-32) mEq/L Anion Gap 12.8 (5-15) BUN 22 H (7-18) mg/dL Creatinine 0.7 (0.7-1.3) mg/dL Est Cr Clr Drug Dosing 135.59 mL/min Estimated GFR (MDRD) > 60 (>60) mL/min BUN/Creatinine Ratio 31.4 H (14-18) Glucose 104 (74-106) mg/dL Calcium 9.4 (8.5-10.1) mg/dL Magnesium 1.9 (1.8-2.4) mg/dl Iron 49 L (65-175) ug/dL TIBC 240 (100-400) ug/dL % Saturation 20 (20-55) % Transferrin 192 L (202-364) mg/dL NT-Pro-B Natriuret Pep 888 H (0-125) pg/mL Vitamin B12 659 (193-986) pg/ml Folate 40.9 (8.6-58.9) ng/mL Free T3 pg/mL (2.50-3.90) pg/mL 12/05/17 12/06/17 12/06/17 Range/Units 05:45 05:55 05:55 WBC 6.05 (4.23-9.07) K/mm3 RBC 4.02 L (4.63-6.08) M/mm3 Hgb 10.8 L (13.7-17.5) gm/L Hct 32.7 L (40.1-51.0) % MCV 81.3 (79.0-92.2) fl MCH 26.9 (25.7-32.2) pg MCHC 33.0 (32.2-35.5) g/dl RDW Std Deviation 48.1 H (35.1-43.9) fL Plt Count 184 (163-337) K/mm3 MPV 11.5 (9.4-12.3) fl Neut % (Auto) 45.8 (34.0-67.9) % Lymph % (Auto) 34.7 (21.8-53.1) % Daniels % (Auto) 16.5 H (5.3-12.2) % Eos % (Auto) 2.6 (0.8-7.0) Baso % (Auto) 0.2 (0.1-1.2) % Neut # (Auto) 2.77 (1.78-5.38) K/mm3 Lymph # (Auto) 2.10 (1.32-3.57) K/mm3 Daniels # (Auto) 1.00 H (0.30-0.82) K/mm3 Eos # (Auto) 0.16 (0.04-0.54) K/mm3 Baso # (Auto) 0.01 (0.01-0.08) K/mm3 Manual Slide Review Normal smear PT (8.0-13.0) SECONDS INR Sodium 143 (136-145) mEq/L Potassium 4.1 (3.5-5.1) mEq/L Chloride 105 (98-107) mEq/L Carbon Dioxide 28 (21-32) mEq/L Anion Gap 14.1 (5-15) BUN 22 H (7-18) mg/dL Creatinine 0.7 (0.7-1.3) mg/dL Est Cr Clr Drug Dosing 133.92 mL/min Estimated GFR (MDRD) > 60 (>60) mL/min BUN/Creatinine Ratio 31.4 H (14-18) Glucose 86 (74-106) mg/dL Calcium 9.3 (8.5-10.1) mg/dL Magnesium 2.0 (1.8-2.4) mg/dl Iron (65-175) ug/dL TIBC (100-400) ug/dL % Saturation (20-55) % Transferrin (202-364) mg/dL NT-Pro-B Natriuret Pep (0-125) pg/mL Vitamin B12 (193-986) pg/ml Folate (8.6-58.9) ng/mL Free T3 pg/mL 13.55 H (2.50-3.90) pg/mL 12/06/17 Range/Units 05:55 WBC (4.23-9.07) K/mm3 RBC (4.63-6.08) M/mm3 Hgb (13.7-17.5) gm/L Hct (40.1-51.0) % MCV (79.0-92.2) fl MCH (25.7-32.2) pg MCHC (32.2-35.5) g/dl RDW Std Deviation (35.1-43.9) fL Plt Count (163-337) K/mm3 MPV (9.4-12.3) fl Neut % (Auto) (34.0-67.9) % Lymph % (Auto) (21.8-53.1) % Daniels % (Auto) (5.3-12.2) % Eos % (Auto) (0.8-7.0) Baso % (Auto) (0.1-1.2) % Neut # (Auto) (1.78-5.38) K/mm3 Lymph # (Auto) (1.32-3.57) K/mm3 Daniels # (Auto) (0.30-0.82) K/mm3 Eos # (Auto) (0.04-0.54) K/mm3 Baso # (Auto) (0.01-0.08) K/mm3 Manual Slide Review PT 15.1 H (8.0-13.0) SECONDS INR 1.36 Sodium (136-145) mEq/L Potassium (3.5-5.1) mEq/L Chloride (98-107) mEq/L Carbon Dioxide (21-32) mEq/L Anion Gap (5-15) BUN (7-18) mg/dL Creatinine (0.7-1.3) mg/dL Est Cr Clr Drug Dosing mL/min Estimated GFR (MDRD) (>60) mL/min BUN/Creatinine Ratio (14-18) Glucose (74-106) mg/dL Calcium (8.5-10.1) mg/dL Magnesium (1.8-2.4) mg/dl Iron (65-175) ug/dL TIBC (100-400) ug/dL % Saturation (20-55) % Transferrin (202-364) mg/dL NT-Pro-B Natriuret Pep (0-125) pg/mL Vitamin B12 (193-986) pg/ml Folate (8.6-58.9) ng/mL Free T3 pg/mL (2.50-3.90) pg/mL Med Orders - Current: Current Medications Acetaminophen (Tylenol) 650 mg PO Q4H PRN PRN Reason: Pain (Mild 1-3)/fever Last Admin: 12/05/17 18:00 Dose: 650 mg Hydrocodone Bitart/Acetaminophen ([place] 325-5 Mg) 1 tab PO Q4H PRN PRN Reason: Pain (moderate 4-6) Famotidine (Pepcid) 20 mg PO BID [facility] Last Admin: 12/06/17 08:08 Dose: 20 mg Hydralazine HCl (Apresoline) 20 mg IVPUSH Q4H PRN PRN Reason: Hypertension Lorazepam (Ativan) 2 mg IVPUSH Q4H PRN PRN Reason: Seizures Lorazepam (Ativan) 1 mg IVPUSH Q4H PRN; Protocol PRN Reason: Anxiety Magnesium Sulfate (Pharmacy To Dose - Magnesium Replacement) 1 dose .XX ASDIRECTED [facility] Methimazole (Methimazole) 10 mg PO Q8H [facility] Last Admin: 12/06/17 03:42 Dose: 10 mg Metoprolol Tartrate (Lopressor) 5 mg IVPUSH Q4H PRN PRN Reason: Tachycardia Metoprolol Tartrate (Lopressor) 25 mg PO Q12HR [facility] Last Admin: 12/06/17 08:08 Dose: 25 mg Ondansetron HCl (Zofran Odt) 4 mg PO Q6H PRN PRN Reason: nausea, able to take PO Ondansetron HCl (Zofran) 4 mg IV Q6H PRN PRN Reason: Nausea/Vomiting Potassium Chloride (Pharmacy To Dose - Potassium Replacement) 1 dose .XX ASDIRECTED [facility] Rivaroxaban (Xarelto) 20 mg PO DAILY [facility] Last Admin: 12/06/17 08:09 Dose: 20 mg Temazepam (Restoril) 15 mg PO BEDTIME PRN PRN Reason: Sleep Discontinued Medications Amiodarone HCl (Cordarone) Confirm Administered Dose 150 mg .ROUTE .STK-MED ONE Stop: 12/04/17 18:28 Last Admin: 12/04/17 18:56 Dose: Not Given Citric Acid/Sodium Citrate (Bicitra Solution) Confirm Administered Dose 30 ml .ROUTE .STK-MED ONE Stop: 12/04/17 18:19 Diltiazem HCl (Diltiazem) 10 mg IVPUSH ONETIME ONE Stop: 12/04/17 12:29 Last Admin: 12/04/17 12:40 Dose: 10 mg Diltiazem HCl (Diltiazem) Confirm Administered Dose 25 mg .ROUTE .STK-MED ONE Stop: 12/04/17 12:45 Last Admin: 12/04/17 12:41 Dose: Not Given Diltiazem HCl (Cardizem Cd) 300 mg PO ONETIME ONE Stop: 12/04/17 19:35 Last Admin: 12/04/17 19:57 Dose: 300 mg Diltiazem HCl (Cardizem Cd) 300 mg PO DAILY [facility] Last Admin: 12/05/17 08:30 Dose: 300 mg Enoxaparin Sodium (Lovenox) 75 mg SUBCUT ONETIME ONE Stop: 12/04/17 20:18 Last Admin: 12/04/17 20:27 Dose: 75 mg Enoxaparin Sodium (Lovenox) 75 mg SUBCUT Q12HR [facility] Last Admin: 12/05/17 08:28 Dose: 75 mg Fentanyl (Sublimaze) Confirm Administered Dose 100 mcg .ROUTE .STK-MED ONE Stop: 12/04/17 18:21 Fentanyl (Sublimaze) Confirm Administered Dose 100 mcg .ROUTE .STK-MED ONE Stop: 12/04/17 18:38 Furosemide (Lasix) 40 mg IVPUSH NOW ONE Stop: 12/04/17 14:42 Last Admin: 12/04/17 14:50 Dose: 40 mg Diltiazem HCl 125 mg/ Sodium (Chloride) 125 mls @ 10 mls/hr IV ASDIRECTED [facility] PRN Reason: 10 MG/HR Last Infusion: 12/04/17 22:44 Dose: 0 mg/hr, 0 mls/hr Magnesium Sulfate 2 gm/ Premix 50 mls @ 25 mls/hr IV ONETIME ONE Stop: 12/04/17 16:39 Last Admin: 12/04/17 14:51 Dose: 25 mls/hr Ibutilide Fumarate 1 mg/ (Sodium Chloride) 60 mls @ 300 mls/hr IV ONETIME ONE Stop: 12/04/17 14:51 Last Admin: 12/04/17 14:59 Dose: 300 mls/hr Ibutilide Fumarate 1 mg/ (Sodium Chloride) 60 mls @ 300 mls/hr IV ONETIME ONE Stop: 12/04/17 15:53 Last Admin: 12/04/17 16:08 Dose: 300 mls/hr Amiodarone HCl/Dextrose (Nexterone In Dextrose 150 Mg/100 Ml) Confirm Administered Dose 100 mls @ as directed IV .STK-MED ONE Stop: 12/04/17 18:18 Last Admin: 12/04/17 18:42 Dose: Not Given Amiodarone HCl/Dextrose 150 mg (/ Premix) 100 mls @ 400 mls/hr IV NOW ONE PRN Reason: Protocol Stop: 12/04/17 19:00 Last Admin: 12/04/17 18:25 Dose: 400 mls/hr Ketamine HCl (Ketalar) Confirm Administered Dose 500 mg .ROUTE .STK-MED ONE Stop: 12/04/17 18:21 Metoclopramide HCl (Reglan) Confirm Administered Dose 10 mg .ROUTE .STK-MED ONE Stop: 12/04/17 18:22 Midazolam HCl (Versed 1 Mg/Ml) Confirm Administered Dose 4 mg .ROUTE .STK-MED ONE Stop: 12/04/17 18:21 Midazolam HCl (Versed 1 Mg/Ml) Confirm Administered Dose 2 mg .ROUTE .STK-MED ONE Stop: 12/04/17 18:38 Propofol (Diprivan 20 Ml) Confirm Administered Dose 200 mg .ROUTE .STK-MED ONE Stop: 12/04/17 18:21 Rivaroxaban (Xarelto) 20 mg PO DAILY [facility] Warfarin Sodium (Coumadin) 7.5 mg PO ONETIME ONE Stop: 12/04/17 20:29 Last Admin: 12/04/17 20:42 Dose: 7.5 mg Warfarin Sodium (Pharmacy To Dose - Warfarin) 1 dose .XX ASDIRECTED [facility] Warfarin Sodium (Coumadin) 7.5 mg PO ONETIME ONE Stop: 12/05/17 18:01 - Exam General: Reports: Alert, Oriented, Cooperative, No Acute Distress HEENT: Reports: Pupils Equal, Pupils Reactive, EOMI, Mucous Membr. Moist/[place] Neck: Reports: Supple, Trachea Midline, No JVD Lungs: Reports: Clear to Auscultation, Normal Respiratory Effort Cardiovascular: Reports: No Murmurs, Irregular Rhythm. Denies: Regular Rate GI/Abdominal Exam: Normal Bowel Sounds, Soft, Non-Tender, No Organomegaly, No Distention, No Abnormal Bruit, No Mass (Male) Exam: Deferred Rectal (Males) Exam: Deferred Back Exam: Reports: Normal Inspection, Decreased Range of Motion Extremities: Normal Inspection, Normal Range of Motion, Non-Tender, No Pedal Edema, Normal Capillary Refill Skin: Reports: Warm, Dry, Intact Neurological: Reports: No New Focal Deficit Psy/Mental Status: Reports: Alert, Normal Affect, Normal Mood *Q Meaningful Use (DIS) - VTE *Q VTE Criteria *Q: - Stroke *Q Stroke Criteria *Q: - AMI *Q AMI Criteria *Q:
[2017-12-06] MEDS ORDERED: Rivaroxaban 10 MG Tab PO SCH (18:00)
== END 2017-12-06 15:00 | disposition home or self-care (01) | DRG 310 ==
LOC: JD.ED 11:54 → JD.ICU 21:21
PROVIDERS: ADMIT Internal Medicine; ATTEND Internal Medicine
DX: I48.1 Persistent atrial fibrillation (principal); I50.9 Heart failure, unspecified; D64.9 Anemia, unspecified; R74.8 Abnormal levels of other serum enzymes; E05.90 Thyrotoxicosis, unspecified without thyrotoxic crisis or storm; E83.42 Hypomagnesemia; Z88.0 Allergy status to penicillin; Z79.82 Long term (current) use of aspirin
CPT/HCPCS: 36415; 71045; 71045-26; 80048; 80053; 80306; 82553; 82607; 82746; 82977; 83540; 83735; 83880; 84439; 84443; 84466; 84481; 84484; 85025; 85379; 85610; 92960; 93005; 93306; 96365; 96366; 96368; 96372; 96375; 96376; 99285-25; A9270-GY; J0282; J1650; J1742; J1940; J2250; J2704; J2765; J3010; J3475; J3490; J7030; J7050